=== PATIENT | female | born 1995 | race African-American/Black ===

== ENCOUNTER 2018-10-10 12:18 | Emergency (ER) | payer SELFPAY | END 2018-10-10 14:08 | disposition home or self-care (01) | LOC: ERS 12:18 | DX: N94.6 Dysmenorrhea, unspecified (principal) | CPT/HCPCS: 99283 ==

== ENCOUNTER 2020-10-11 13:26 | Inpatient (IN) | payer MEDICAID, SELFPAY ==
[2020-10-11] MEDS ORDERED: Fentanyl 100 MCG/2 ML VIAL ONE (14:36)
[2020-10-11] MEDS ORDERED: Piperacillin/Tazobactam 4.5 GM VIAL ONE (15:29)
[2020-10-11] MEDS ORDERED: Calcium Carbonate 500 MG ChewTAB PO PRN (16:56)
[2020-10-11] MEDS ORDERED: Promethazine HCl 25 MG/ML VIAL IM PRN (16:56)
[2020-10-11] MEDS ORDERED: hydrALAZINE 20 MG/ML VIAL SLOW IVP PRN (16:56)
[2020-10-11] MEDS ORDERED: Dextrose 5% in Water 1,000 ML IV PRN (16:56)
[2020-10-11] MEDS ORDERED: Ondansetron PF 4 MG/2 ML Vial IVP PRN (16:56)
[2020-10-11] MEDS ORDERED: Mag-Al 1200 mg/1200 mg/30 ML UDCUP PO PRN (16:56)
[2020-10-11] MEDS ORDERED: Morphine 2 MG/ML VIAL SLOW IVP PRN (16:56)
[2020-10-11] MEDS ORDERED: Dextrose 50% Abboject 50 ML SYRINGE SLOW IVP PRN (16:56)
[2020-10-11] MEDS: D5 1/2 NS w/20 mEq KCL 1,000 ML IV SCH (19:41)
[2020-10-11] MEDS: Morphine 4 MG/ML VIAL SLOW IVP PRN (19:41)
[2020-10-11 19:52] VITALS: BMI 51.2
[2020-10-11] MEDS ORDERED: Piperacillin/Tazobactam 3.375 GM in Sodium Chloride 0.9% 100 ML IVPB SCH (21:00)
[2020-10-11] MEDS: Piperacillin/Tazobactam 3.375 GM, Admixture Fee 1 EACH in Sodium Chloride 0.9% 100 ML IVPB SCH (21:18)
[2020-10-11] MEDS: Famotidine/PF 20 mg/2ml Vial SLOW IVP SCH (21:18)
[2020-10-11] MEDS: Ketorolac Tromethamine 30 MG/ML VIAL IVP SCH ×2 (21:48→23:24)
[2020-10-11] MEDS: Famotidine 20 MG TAB PO SCH (21:49)
[2020-10-12] MEDS: Piperacillin/Tazobactam 3.375 GM, Admixture Fee 1 EACH in Sodium Chloride 0.9% 100 ML IVPB SCH ×4 (04:39→23:02)
[2020-10-12] MEDS: D5 1/2 NS w/20 mEq KCL 1,000 ML IV SCH ×3 (04:42→15:56)
[2020-10-12 05:32] LABS: #Basophils 0.1 thou/uL (0.0-0.2); #Eosinphils 0.1 thou/uL (0.0-0.7); #Lymphocytes 3.6 thou/uL (1.20-3.40); #Monocytes 1.3 thou/uL (0.11-0.59); #Neutrophils 8.7 thou/uL (1.40-6.50); %Basophils 0.6 % (0.0-1.0); %Eosinophils 0.8 % (0.0-10.0); %Lymphocytes 26.3 % (21.0-51.0); %Monocytes 9.6 % (0.0-10.0); %Neutrophils 62.8 % (42.0-75.0); Hemoglobin 11.9 g/dL (12.0-16.0); Mean Corpuscular HGB CONC 30.1 g/dL (32.0-36.0); Mean Corpuscular Hemoglobin 26.4 pg (27.0-31.0); Mean Corpuscular Volume 87.9 fL (78.0-98.0); Platelet Count 314 thou/uL (130-400); RBC Distribution Width 12.5 % (11.5-14.5); Red Blood Cell (RBC) Count 4.52 mill/uL (4.20-5.40); White Blood Cell (WBC) Count 13.8 thou/uL (4.8-10.8)
[2020-10-12] MEDS: Ketorolac Tromethamine 30 MG/ML VIAL IVP SCH ×4 (05:55→23:02)
[2020-10-12 05:56] LABS: ALT (SGPT) 74 U/L (8-55); AST (SGOT) 33 U/L (5-34); Albumin 3.1 g/dL (3.5-5.0); Alkaline Phosphatase 84 U/L (40-110); Anion Gap 10 mmol/L (10-20); BUN (Urea Nitrogen) 10 mg/dL (7.0-18.7); Bilirubin, Total 0.3 mg/dL (0.2-1.2); Calc. Creatinine Clearance 192 mL/min (70-130); Calcium 8.3 mg/dL (7.8-10.44); Carbon Dioxide 28 mmol/L (22-29); Chloride 105 mmol/L (98-107); Globulin 4.1 g/dL (2.4-3.5); Glucose 103 mg/dL (70-105); Lipase 21 U/L (8-78); Potassium 3.6 mmol/L (3.5-5.1); Protein, Total 7.2 g/dL (6.0-8.3); Sodium 139 mmol/L (136-145)
[2020-10-12] MEDS ORDERED: Bupivacaine 0.25% HCL 30 ML VIAL ONE (07:30)
[2020-10-12] MEDS ORDERED: Lidocaine 1% w/Epinephrine 1:100K 20 ML VIAL ONE (07:30)
[2020-10-12] MEDS ORDERED: Dexmedetomidine 200 MCG/2 ML VIAL ONE (07:40)
[2020-10-12] MEDS ORDERED: Fentanyl 100 MCG/2 ML VIAL ONE (07:40)
[2020-10-12] MEDS ORDERED: Sodium Chloride 0.9% 10 ML ONE (08:04)
[2020-10-12] MEDS ORDERED: ePHEDrine Sulfate 50 MG/10 ML VIAL ONE (08:26)
[2020-10-12] MEDS ORDERED: PROPOFOL 200 MG/20 ML VIAL ONE (08:26)
[2020-10-12] MEDS ORDERED: Dexamethasone 20 MG/5 ML VIAL ONE (08:26)
[2020-10-12] MEDS ORDERED: Glycopyrrolate 0.2 MG/ML 5 ML SYRINGE ONE (08:26)
[2020-10-12] MEDS ORDERED: Rocuronium Bromide 10 MG/ML (10ML VIAL) ONE (08:26)
[2020-10-12] MEDS ORDERED: Ondansetron PF 4 MG/2 ML Vial ONE (08:26)
[2020-10-12] MEDS ORDERED: Lidocaine 1% PF 5 ML VIAL ONE (08:26)
[2020-10-12] MEDS ORDERED: Ondansetron HCl/PF 4 MG/2 ML Vial IVP PRN (09:34)
[2020-10-12] MEDS ORDERED: Promethazine HCl 25 MG/ML VIAL IVPB PRN (09:34)
[2020-10-12] MEDS ORDERED: Promethazine HCl 25 MG/ML VIAL IM PRN (09:34)
[2020-10-12] MEDS: Famotidine 20 MG TAB PO SCH ×2 (10:10→19:57)
[2020-10-12] MEDS: Famotidine/PF 20 mg/2ml Vial SLOW IVP SCH ×2 (11:44→19:58)
[2020-10-12] MEDS: Morphine 4 MG/ML VIAL SLOW IVP PRN ×2 (12:54→19:58)
[2020-10-13] MEDS: Piperacillin/Tazobactam 3.375 GM, Admixture Fee 1 EACH in Sodium Chloride 0.9% 100 ML IVPB SCH ×4 (03:33→20:43)
[2020-10-13] MEDS: D5 1/2 NS w/20 mEq KCL 1,000 ML IV SCH ×3 (03:52→20:43)
[2020-10-13] MEDS: Ketorolac Tromethamine 30 MG/ML VIAL IVP SCH ×4 (06:02→23:23)
[2020-10-13 06:13] LABS: #Lymphocytes 2.7 thou/uL (1.20-3.40); #Monocytes 1.4 thou/uL (0.11-0.59); #Neutrophils 9.9 thou/uL (1.40-6.50); %Basophils 0.1 % (0.0-1.0); %Eosinophils 0.1 % (0.0-10.0); %Lymphocytes 19.2 % (21.0-51.0); %Monocytes 10.2 % (0.0-10.0); %Neutrophils 70.3 % (42.0-75.0); Hemoglobin 11.2 g/dL (12.0-16.0); Mean Corpuscular HGB CONC 29.7 g/dL (32.0-36.0); Mean Corpuscular Volume 87.4 fL (78.0-98.0); Mean Platelet Volume 8.2 fL (7.4-10.4); Platelet Count 296 thou/uL (130-400); RBC Distribution Width 12.5 % (11.5-14.5); Red Blood Cell (RBC) Count 4.33 mill/uL (4.20-5.40)
[2020-10-13 06:23] LABS: ALT (SGPT) 89 U/L (8-55); AST (SGOT) 49 U/L (5-34); Albumin 3.2 g/dL (3.5-5.0); Alkaline Phosphatase 79 U/L (40-110); Bilirubin, Direct 0.3 mg/dL (0.1-0.3); Bilirubin, Total 0.4 mg/dL (0.2-1.2); Protein, Total 7.3 g/dL (6.0-8.3)
[2020-10-13] MEDS: Morphine 4 MG/ML VIAL SLOW IVP PRN (08:01)
[2020-10-13] MEDS: Famotidine 20 MG TAB PO SCH ×2 (08:04→20:44)
[2020-10-13] MEDS: Famotidine/PF 20 mg/2ml Vial SLOW IVP SCH ×2 (08:04→20:45)
[2020-10-14] MEDS: Morphine 4 MG/ML VIAL SLOW IVP PRN (00:22)
[2020-10-14] MEDS: Piperacillin/Tazobactam 3.375 GM, Admixture Fee 1 EACH in Sodium Chloride 0.9% 100 ML IVPB SCH ×2 (03:32→09:04)
[2020-10-14] MEDS: Ketorolac Tromethamine 30 MG/ML VIAL IVP SCH ×2 (05:36→10:56)
[2020-10-14] MEDS: D5 1/2 NS w/20 mEq KCL 1,000 ML IV SCH (05:52)
[2020-10-14 07:37] VITALS: BP 135/84; TEMP 97.8
[2020-10-14] MEDS: Famotidine/PF 20 mg/2ml Vial SLOW IVP SCH (09:04)
[2020-10-14] MEDS: Famotidine 20 MG TAB PO SCH (09:05)
[2020-10-14] MEDS ORDERED: HYDROcodone/Acetaminophen 10/325 mg Tablet PO PRN (10:28)
== END 2020-10-14 11:52 | disposition home or self-care (01) | DRG 418 ==
LOC: ERS 13:26 → SURG A 16:08
PROVIDERS: ADMIT Surgery; ATTEND Surgery
PROC: 0FT44ZZ Resection of Gallbladder, Percutaneous Endoscopic Approach (ICD-10-PCS; principal; 2020-10-12)
DX: K80.00 Calculus of gallbladder with acute cholecystitis without obstruction (principal); Z68.43 Body mass index [BMI] 50.0-59.9, adult; E66.01 Morbid (severe) obesity due to excess calories
CPT/HCPCS: 36415; 76705; 80053; 80076; 83690; 85025; 88304; 96365; 96375; J1100; J1885; J2270; J2405; J2543; J2704; J3010; J3480; J3490; S0020; S0028

== ENCOUNTER 2022-06-03 13:56 | Emergency (ER) | payer BC ==
[2022-06-03] MEDS ORDERED: Ondansetron ODT 4 MG TAB ONE (14:39)
[2022-06-03 15:18] LABS: Pregnancy Test - Urine (BHCG) Negative (Negative); Pregu Control Background? CLEAR/WHITE (CLR/WHITE); Pregu Control Bar Appear? YES (CONTROL BAR); Specific Gravity 1.025 (1.002-1.036)
[2022-06-03] MEDS ORDERED: Acetaminophen 325 MG TAB ONE (15:19)
== END 2022-06-03 15:48 | disposition home or self-care (01) ==
LOC: ERS 13:56
DX: J02.9 Acute pharyngitis, unspecified (principal); F17.210 Nicotine dependence, cigarettes, uncomplicated; Z20.822 Contact with and (suspected) exposure to COVID-19
CPT/HCPCS: 81025; 87081; 87430; 87804; 99283; Q0162; U0003; U0005

== ENCOUNTER 2023-01-05 15:48 | Emergency (ER) | payer OTHER | END 2023-01-05 18:31 | disposition home or self-care (01) | LOC: ERS 15:48 | DX: S39.012A Strain of muscle, fascia and tendon of lower back, initial encounter (principal); E11.9 Type 2 diabetes mellitus without complications; Z20.822 Contact with and (suspected) exposure to COVID-19; Z79.84 Long term (current) use of oral hypoglycemic drugs; V49.60XA Unspecified car occupant injured in collision with unspecified motor vehicles in traffic accident, initial encounter | CPT/HCPCS: 72100; 87635 ==

== ENCOUNTER 2023-01-17 13:05 | Emergency (ER) | payer OTHER | END 2023-01-17 14:29 | disposition home or self-care (01) | LOC: ERS 13:05 | DX: G51.0 Bell's palsy (principal); E11.9 Type 2 diabetes mellitus without complications | CPT/HCPCS: 99283 ==

== ENCOUNTER 2023-11-08 06:52 | Emergency (ER) | payer OTHER ==
[2023-11-08 07:19] LABS: #Basophils 0.03 10x3/uL (0.0-0.2); %Basophils 0.2 % (0.0-1.0); %Eosinophils 1.3 % (0.0-10.0); %Lymphocytes 18.5 % (21.0-51.0); %Monocytes 8.8 % (0.0-10.0); %Neutrophils 70.9 % (42.0-75.0); Hematocrit 44.2 % (36.0-47.0); Hemoglobin 13.5 g/dL (12.0-16.0); Mean Corpuscular HGB CONC 30.5 g/dL (32.0-36.0); Mean Corpuscular Hemoglobin 25.7 pg (27.0-31.0); Mean Platelet Volume 9.6 fL (7.4-10.4); Platelet Count 360 10x3/uL (130-400); RBC Distribution Width 13.4 % (11.5-14.5); Red Blood Cell (RBC) Count 5.26 mill/uL (4.20-5.40)
[2023-11-08] MEDS ORDERED: Ketorolac Tromethamine 30 MG (1 mL) VIAL ONE (07:39)
[2023-11-08] MEDS ORDERED: Ondansetron PF 4 MG/2 ML Vial ONE (07:39)
[2023-11-08 07:43] LABS: ALT (SGPT) 36 U/L (8-55); AST (SGOT) 22 U/L (5-34); Albumin 3.1 g/dL (3.5-5.0); Alkaline Phosphatase 87 U/L (40-110); Anion Gap 12 mmol/L (10-20); BUN (Urea Nitrogen) 13 mg/dL (7.0-18.7); Bilirubin, Total 0.2 mg/dL (0.2-1.2); Calc. Creatinine Clearance 0 mL/min (70-130); Calcium 8.8 mg/dL (7.8-10.44); Carbon Dioxide 28 mmol/L (22-29); Chloride 102 mmol/L (98-107); Estimated GFR 100; Globulin 4.6 g/dL (2.4-3.5); Glucose 130 mg/dL (70-105); Potassium 4.1 mmol/L (3.5-5.1); Protein, Total 7.7 g/dL (6.0-8.3); Sodium 138 mmol/L (136-145)
[2023-11-08 07:58] LABS: BHCG - Serum Negative (NEGATIVE); Pregs Control Background? CLEAR/WHITE (CLR/WHITE); Pregs Control Bar Appear? YES (CONTROL BAR)
[2023-11-08 09:25] LABS: Bacteria/HPF None Seen HPF (None Seen); Bilirubin Negative (Negative); Blood, Urine Negative (Negative); CAUTI Indications for Culture Immunosuppressed; Clarity Clear (Clear); Glucose, Urine (Dipstick) Normal (Negative); Ketone, Urine Negative (Negative); Leukocyte 75 Leu/uL (Negative); Nitrite Negative (Negative); Protein, Urine (Dipstick) Negative (Neg-Trace); RBC/HPF 0-3 HPF (0-3); Squamous Epithelial 0-3 HPF (0-3); Urobilinogen Normal mg/dL (Less than 2); WBC/HPF 0-3 HPF (0-3); pH, Urine 7.5 (5.0-9.0)
[2023-11-08 09:30] LABS: Urine Culture Reflex Yes Yes
[2023-11-08] MEDS ORDERED: Iopamidol-370 76% 500 ML MDV (1 ML CHARGE) ONE (10:48)
== END 2023-11-08 09:58 | disposition home or self-care (01) ==
LOC: ERS 06:52
DX: A08.4 Viral intestinal infection, unspecified (principal); E11.9 Type 2 diabetes mellitus without complications; Z79.84 Long term (current) use of oral hypoglycemic drugs
CPT/HCPCS: 36415; 74177; 80053; 81001; 83690; 84703; 85025; 87086; 96374; 96375; J1885; J2405; Q9967